=== PATIENT | male | born 1970 | race Caucasian/White ===

== ENCOUNTER 2017-08-11 05:00 | Emergency (ER) | payer SELFPAY ==
[2017-08-11] MEDS ORDERED: Acetaminophen/HYDROcodone 325-10 MG Tab PO ONE (05:01)
[2017-08-11] MEDS ORDERED: Lidocaine 2% Viscous Solution 15 ML Cup PO ONE (05:09)
[2017-08-11] MEDS ORDERED: Clindamycin HCl 150 MG Cap PO ONE (05:09)
--- NOTE | 2017-08-11 05:20 | EDM.PDOC ---
ED HPI GENERAL MEDICAL PROBLEM - General Chief Complaint: ENT Problem Stated Complaint: TOOTH PAIN Time Seen by Provider: 08/11/17 05:05 Source of Information: Reports: Patient History Limitations: Reports: No Limitations - History of Present Illness INITIAL COMMENTS - FREE TEXT/NARRATIVE: This 46 yo male patient reports to the ED with dental pain in his left lower posterior jaw. The patient reports his pain started yesterday afternoon, but has continued to get worse throughout the night. The patient reports he took some aspirin yesterday which made his pain better, but it no longer works. The patient reports he is "overdue" for a dental visit. Onset Date: 08/10/17 Duration: Constant, Getting Worse Location: Reports: Face Quality: Reports: Ache, Sharp Severity: Severe Improves with: Reports: None Worsens with: Reports: None Associated Symptoms: Reports: No Other Symptoms Treatments [employer]: Reports: Acetaminophen, Aspirin Left Lower Tooth/Teeth Pain Score (Numeric/FACES): 10 Past Medical History - Past Health History Medical/Surgical History: Denies Medical/Surgical History Social & Family History - Tobacco Use Smoking Status *Q: Never Smoker Second Hand Smoke Exposure: No - Caffeine Use Caffeine Use: Reports: Coffee, Soda, Tea - Recreational Drug Use Recreational Drug Use: No ED ROS ENT - Review of Systems Review Of Systems: ROS reveals no pertinent complaints other than HPI. ED EXAM, ENT - Physical Exam Exam: See Below Exam Limited By: No Limitations General Appearance: Alert, WD/WN, Moderate Distress Eye Exam: Bilateral Eye: EOMI, Normal Inspection, PERRL Ears: Normal External Exam, Normal Canal, Hearing Grossly Normal, Normal TMs Nose: Normal Inspection, Normal Mucousa, No Blood Mouth/Throat: Dental Pain (left lower molar ) Head: Atraumatic, Normocephalic Neck: Normal Inspection, Supple, Non-Tender, Full Range of Motion Respiratory/Chest: No Respiratory Distress, Lungs Clear, Normal Breath Sounds, No Accessory Muscle Use, Chest Non-Tender Cardiovascular: Normal Peripheral Pulses, Regular Rate, Rhythm, No Edema, No Gallop, No JVD, No Murmur, No Rub GI/Abdominal: Normal Bowel Sounds, Soft, Non-Tender, No Organomegaly, No Distention, No Abnormal Bruit, No Mass (Male) Exam: Deferred Rectal (Males) Exam: Deferred Back: Normal Inspection, Full Range of Motion Extremities: Normal Inspection, Normal Range of Motion, Non-Tender, No Pedal Edema, Normal Capillary Refill Neurological: Alert, Oriented, CN II-XII Intact, Normal Cognition, Normal Gait, Normal Reflexes, No Motor/Sensory Deficits Psychiatric: Normal Affect, Normal Mood Skin: Warm, Dry, Intact, Normal Color, No Rash Lymphatic: No Adenopathy Course - Vital Signs Last Recorded V/S: Last Vital Signs Temp 35.8 C 08/11/17 05:02 Pulse 70 08/11/17 05:02 Resp 20 08/11/17 05:02 BP 170/102 H 08/11/17 05:02 Pulse Ox 100 08/11/17 05:02 - Orders/Labs/Meds Meds: Medications Discontinued Medications Generic Name Dose Route Start Last Admin Trade Name Yuliana PRN Reason Stop Dose Admin Clindamycin HCl 300 mg 08/11/17 05:09 Cleocin PO 08/11/17 05:10 ONETIME ONE Lidocaine HCl 15 ml 08/11/17 05:09 Xylocaine 2% Viscous PO 08/11/17 05:10 ONETIME ONE Departure - Departure Time of Disposition: 05:16 Disposition: Home, Self-Care 01 Condition: Fair Clinical Impression: Dental caries, Dental abscess - Discharge Information Instructions: Dental Abscess, [id number], Dental Caries, [id number] Care Plan Goals: The patient was advised of the examination results during the visit. The patient was given an oral dose of Clindamycin (300 mg) while in the ED. The patient was discharged with a script for Clindamycin (300 mg) to take 1 by mouth 4 times per day for 10 days and Viscous Lidocaine 2% #100 mL to apply 5- 10 mL to a cottonball every 6 hours as needed for symptom relief. The patient was encouraged to follow-up with a dentist as soon as possible. If the patient has any additional symptoms or concerns, the patient should either visit his dentist, his primary care facility or return to the emergency department.
[2017-08-11] MEDS ORDERED: Acetaminophen/HYDROcodone 325-10 MG Tab ONE (05:23)
== END 2017-08-11 05:26 | disposition home or self-care (01) ==
LOC: DL.ED 05:00
DX: K04.7 Periapical abscess without sinus (principal); K02.9 Dental caries, unspecified
CPT/HCPCS: 99282; A9270

== ENCOUNTER 2019-07-14 16:48 | Emergency (ER) | payer BC ==
[2019-07-14] MEDS ORDERED: Ketorolac 30 MG/ML SDV IVPUSH ONE (19:36)
[2019-07-14] MEDS ORDERED: Sodium Chloride 0.9% 1,000 ML IV ONE ×2 (19:36→21:14)
[2019-07-14] MEDS ORDERED: Ondansetron 4 MG/2 ML SDV IV ONE (19:36)
--- NOTE | 2019-07-14 19:41 | EDM.PDOC ---
ED HPI GENERAL MEDICAL PROBLEM - General Chief Complaint: General Stated Complaint: EVERYTHING IS HURTING Time Seen by Provider: 07/14/19 19:37 Source of Information: Reports: Patient History Limitations: Reports: No Limitations - History of Present Illness INITIAL COMMENTS - FREE TEXT/NARRATIVE: was moving a heavy boiler yesterday, was raining but didn't get wet. today started general body aches with F/C, nausea no appetite ate nothing all day. denies dysuria but testicles feels more swollen but no pain on straining. c/o LBP back Pain Score (Numeric/FACES): 8 - Related Data Allergies Allergy/AdvReac Type Severity Reaction Status Date / Time No Known Allergies Allergy Verified 07/14/19 17:31 Home Meds: Home Meds . [No Known Home Meds] 08/11/17 [History] Past Medical History - Past Health History Medical/Surgical History: Denies Medical/Surgical History Musculoskeletal History: Reports: None - Past Surgical History Musculoskeletal Surgical History: Reports: Arthroscopic Knee, Other (See Below) Other Musculoskeletal Surgeries/Procedures:: 3 knee repair surgeries Social & Family History - Family History Family Medical History: Noncontributory - Tobacco Use Smoking Status *Q: Never Smoker Second Hand Smoke Exposure: No - Caffeine Use Caffeine Use: Reports: Coffee - Recreational Drug Use Recreational Drug Use: Yes Recreational Drug Type: Reports: Marijuana/Hashish Recreational Drug Use Frequency: Socially ED ROS GENERAL - Review of Systems Review Of Systems: ROS reveals no pertinent complaints other than HPI. ED EXAM, GENERAL - Physical Exam Exam: See Below Exam Limited By: No Limitations General Appearance: Alert, WD/WN, Mild Distress, Other (dsiocmfort) Ears: Hearing Grossly Normal Throat/Mouth: Normal Voice, No Airway Compromise Head: Atraumatic Neck: Non-Tender, Full Range of Motion Respiratory/Chest: No Respiratory Distress Cardiovascular: Regular Rate, Rhythm GI/Abdominal: Soft, Non-Tender (Male) Exam: Scrotum Tenderness (L), Scrotum Tenderness (R), Other (mild erytehma, inguinal canals benign to palpation) Back Exam: CVA Tenderness (L), CVA Tenderness (R), Paraspinal Tenderness, Other (no radiculitis noted) Neurological: Alert, Oriented, Normal Cognition, Normal Gait, No Motor/Sensory Deficits Psychiatric: Flat Affect Skin Exam: Warm, Dry, Normal Color Lymphatic: No Adenopathy Course - Vital Signs Last Recorded V/S: Last Vital Signs Temp 36.8 C 07/14/19 20:56 Pulse 61 07/14/19 20:56 Resp 19 07/14/19 20:56 BP 141/84 H 07/14/19 20:56 Pulse Ox 100 07/14/19 20:56 - Orders/Labs/Meds Labs: Laboratory Tests 07/14/19 07/14/19 07/14/19 Range/Units 17:22 19:58 19:58 WBC 6.5 (5.0-10.0) 10^3/uL RBC 5.01 (4.6-6.2) 10^6/uL Hgb 16.1 (14.0-18.0) g/dL Hct 43.5 (40.0-54.0) % MCV 86.8 (80-100) fL MCH 32.1 (27.0-34.0) pg MCHC 37.0 H (33.0-35.0) g/dL Plt Count 138 L (150-450) 10^3/uL Neut % (Auto) 60.6 (42.2-75.2) % Lymph % (Auto) 26.2 (20.5-50.1) % [place] % (Auto) 11.9 H (2-8) % Eos % (Auto) 0.5 L (1.0-3.0) % Baso % (Auto) 0.8 (0.0-1.0) % Sodium 137 (135-145) mmol/L Potassium 3.8 (3.6-5.0) mmol/L Chloride 102 (101-111) mmol/L Carbon Dioxide 24.0 (21.0-31.0) mmol/L Anion Gap 14.8 BUN 14 (7-18) mg/dL Creatinine 0.9 (0.6-1.3) mg/dL Est Cr Clr Drug Dosing 105.75 mL/min Estimated GFR (MDRD) > 60 BUN/Creatinine Ratio 15.55 Glucose 101 (74-105) mg/dL Calcium 8.9 (8.4-10.2) mg/dl Total Bilirubin 3.1 H (0.2-1.0) mg/dL AST 24 (10-42) IU/L ALT 28 (10-60) IU/L Alkaline Phosphatase 66 (42-121) IU/L C-Reactive Protein (0.0-1.3) mg/dL Total Protein 7.4 (6.7-8.2) g/dl Albumin 4.1 (3.2-5.5) g/dl Globulin 3.3 Albumin/Globulin Ratio 1.24 Urine Color Yellow (YELLOW) Urine Appearance Clear (CLEAR) Urine pH 8.5 (5.0-9.0) Ur Specific [place] 1.015 (1.005-1.030) Urine Protein 30 H (NEGATIVE) Urine Glucose (UA) Negative (NEGATIVE) Urine Ketones Trace H (NEGATIVE) Urine Occult Blood Negative (NEGATIVE) Urine Nitrite Negative (NEGATIVE) Urine Bilirubin Negative (NEGATIVE) Urine Urobilinogen 1.0 (0.2-1.0) mg/dL Ur Leukocyte Esterase Negative (NEGATIVE) Urine RBC 0-5 /HPF Urine WBC 10-20 H (0-5/HPF) /HPF Ur Epithelial Cells Rare (NOT SEEN) /HPF Urine Bacteria Rare (0-FEW/HPF) /HPF Urine Mucus Few H (NOT SEEN) /LPF 07/14/19 Range/Units 19:58 WBC (5.0-10.0) 10^3/uL RBC (4.6-6.2) 10^6/uL Hgb (14.0-18.0) g/dL Hct (40.0-54.0) % MCV (80-100) fL MCH (27.0-34.0) pg MCHC (33.0-35.0) g/dL Plt Count (150-450) 10^3/uL Neut % (Auto) (42.2-75.2) % Lymph % (Auto) (20.5-50.1) % B[place] % (Auto) (2-8) % Eos % (Auto) (1.0-3.0) % Baso % (Auto) (0.0-1.0) % Sodium (135-145) mmol/L Potassium (3.6-5.0) mmol/L Chloride (101-111) mmol/L Carbon Dioxide (21.0-31.0) mmol/L Anion Gap BUN (7-18) mg/dL Creatinine (0.6-1.3) mg/dL Est Cr Clr Drug Dosing mL/min Estimated GFR (MDRD) BUN/Creatinine Ratio Glucose (74-105) mg/dL Calcium (8.4-10.2) mg/dl Total Bilirubin (0.2-1.0) mg/dL AST (10-42) IU/L ALT (10-60) IU/L Alkaline Phosphatase (42-121) IU/L C-Reactive Protein 2.2 H (0.0-1.3) mg/dL Total Protein (6.7-8.2) g/dl Albumin (3.2-5.5) g/dl Globulin Albumin/Globulin Ratio Urine Color (YELLOW) Urine Appearance (CLEAR) Urine pH (5.0-9.0) Ur Specific [place] (1.005-1.030) Urine Protein (NEGATIVE) Urine Glucose (UA) (NEGATIVE) Urine Ketones (NEGATIVE) Urine Occult Blood (NEGATIVE) Urine Nitrite (NEGATIVE) Urine Bilirubin (NEGATIVE) Urine Urobilinogen (0.2-1.0) mg/dL Ur Leukocyte Esterase (NEGATIVE) Urine RBC /HPF Urine WBC (0-5/HPF) /HPF Ur Epithelial Cells (NOT SEEN) /HPF Urine Bacteria (0-FEW/HPF) /HPF Urine Mucus (NOT SEEN) /LPF Meds: Medications Discontinued Medications Generic Name Dose Route Start Last Admin Trade Name Freq PRN Reason Stop Dose Admin Hydrocodone Bitart/Acetaminophen 1 tab 07/14/19 21:59 07/14/19 22:25 [place] 325-10 Mg PO 07/14/19 22:00 1 tab ONETIME ONE Administration Doxycycline Hyclate 100 mg 07/14/19 20:44 07/14/19 20:53 Vibramycin PO 07/14/19 20:45 100 mg ONETIME ONE Administration Sodium Chloride 1,000 mls @ 999 mls/hr 07/14/19 19:36 07/14/19 19:53 Normal Saline IV 07/14/19 20:36 999 mls/hr .BOLUS ONE Administration Ceftriaxone Sodium 1 gm/ 50 mls @ 50 mls/hr 07/14/19 20:44 07/14/19 20:52 Sodium Chloride IV 07/14/19 21:43 50 mls/hr ONETIME ONE Administration Sodium Chloride 1,000 mls @ 999 mls/hr 07/14/19 21:14 07/14/19 21:32 Normal Saline IV 07/14/19 22:14 999 mls/hr .BOLUS ONE Administration Ketorolac Tromethamine 30 mg 07/14/19 19:36 07/14/19 19:55 Toradol IVPUSH 07/14/19 19:37 30 mg ONETIME ONE Administration Ondansetron HCl 4 mg 07/14/19 19:36 07/14/19 19:54 Zofran IV 07/14/19 19:37 4 mg ONETIME ONE Administration - Re-Assessments/Exams Free Text/Narrative Re-Assessment/Exam: 07/14/19 20:45 re-exam; s/p IV otradol = better but not 100% Departure - Departure Time of Disposition: 22:33 Disposition: Home, Self-Care 01 Condition: Good Clinical Impression: Flu syndrome, Dehydration syndrome, Lumbar paraspinal muscle spasm, Epididymitis, bilateral - Discharge Information Instructions: Scrotal Swelling, Epididymitis Forms: ED Department Discharge Additional Instructions: 1) rest 2) avoid bending lifting straining next 48 hours 3) try heat or ice to sore areas 4) see clinic Wednesday if problem persists 5) recheck if there is any change or concern rx given; doxycycline 100mg bid x 20 flexeril 10mg bid prn back spasms x 12
[2019-07-14 20:27] LABS: ANION GAP 14.8; CHLORIDE,CL 102 mmol/L (101-111); SODIUM,NA 137 mmol/L (135-145)
[2019-07-14] MEDS ORDERED: Doxycycline 100 MG Cap PO ONE (20:44)
[2019-07-14] MEDS ORDERED: cefTRIAXone 1 GM in Sodium Chloride 0.9% 50 ML IV ONE (20:44)
[2019-07-14] MEDS ORDERED: Acetaminophen/HYDROcodone 325-10 MG Tab PO ONE (21:59)
== END 2019-07-14 22:45 | disposition home or self-care (01) ==
LOC: DL.ED 16:48
DX: E86.0 Dehydration (principal); J11.1 Influenza due to unidentified influenza virus with other respiratory manifestations; M62.830 Muscle spasm of back; N45.1 Epididymitis
CPT/HCPCS: 36415; 80053; 81001; 85025; 86140; 87804; 96361; 96365; 96375; 99283; A9270; J0696; J1885; J2405; J7030; J7050

== ENCOUNTER 2025-07-09 12:07 | Emergency (ER) | payer SELFPAY ==
[2025-07-09 12:32] LABS: APPEARANCE,URINE CLEAR (CLEAR); GLUCOSE,URINE NEGATIVE (NEGATIVE); OCCULT BLOOD,URINE MODERATE (NEGATIVE)
[2025-07-09] MEDS ORDERED: Sodium Chloride 0.9% 10 ML Syringe FLUSH PRN (12:37)
[2025-07-09] MEDS: Ketorolac 30 MG/ML SDV IVPUSH ONE (12:47)
[2025-07-09 12:51] LABS: BASOPHILS PERCENT AUTO 0.3 % (0.0-1.0); EOSINOPHILS PERCENT AUTO 1.4 % (1.0-3.0); LYMPHOCYTES PERCENT AUTO 16.1 % (20.5-50.1); MONOCYTES PERCENT AUTO 5.8 % (2-8); NEUTROPHILS PERCENT AUTO 76.4 % (42.2-75.2); PLATELET COUNT,PLT 183 10^3/uL (150-450); RED BLOOD CELL COUNT 5.23 10^6/uL (4.6-6.2); WHITE BLOOD CELL COUNT,WBC 10.0 10^3/uL (5.0-10.0)
[2025-07-09 12:54] LABS: EPITHELIAL CELLS,URINE FEW /HPF (NOT SEEN)
[2025-07-09] MEDS: Iopamidol 612 MG/ML 100 ML Bottle IVPUSH ONE (12:56)
[2025-07-09] MEDS: Ondansetron 4 MG/2 ML SDV IVPUSH ONE (13:10)
[2025-07-09 13:11] LABS: A/G RATIO 1.0; ALANINE AMINOTRANSFERASE,ALT 53.0 U/L (16-63); ASPARTATE AMNIOTRANSFERASE,AST 27.0 U/L (15-37); BILIRUBIN TOTAL 1.8 mg/dL (0.2-1.0); BLOOD UREA NITROGEN,BUN 24.0 mg/dL (7-18); CARBON DIOXIDE,CO2 30.0 mmol/L (21-32); CHLORIDE,CL 104.0 mmol/L (98-107); CREATININE 1.17 mg/dL (0.70-1.30); EST CRCL DRUG DOSING (CG) 75.98 mL/min; ESTIMATED GFR 74.0 mL/min (>=60); GLUCOSE RANDOM 124.0 mg/dL (70-99); POTASSIUM,K 3.8 mmol/L (3.5-5.1); PROTEIN TOTAL,TP 7.7 g/dL (6.4-8.2); SODIUM,NA 143.0 mmol/L (136-145)
[2025-07-09] MEDS: Lactated Ringers 1,000 ML IV ONE (13:37)
== END 2025-07-09 14:17 | disposition home or self-care (01) ==
LOC: DL.ED 12:07
DX: N20.1 Calculus of ureter (principal)
CPT/HCPCS: 36415; 74177; 80053; 81001; 85025; 96361; 96374; 96375; 99284; J1171; J1885; J2405; J7120; Q9967